=== PATIENT | male | born 1965 | race Caucasian/White ===

== ENCOUNTER → 2020-09-24 09:35 | Outpatient (BNVA) | payer OTHER, SELFPAY | PROVIDERS: Family Provider Emergency Medicine Emergency Medical Services; PCP Emergency Medicine Emergency Medical Services; Visit Provider Urology | DX: R31.29 Other microscopic hematuria (principal) | CPT/HCPCS: 81003 ==

== ENCOUNTER → 2021-09-16 08:10 | Outpatient (BNVA) | payer OTHER, SELFPAY | PROVIDERS: PCP Emergency Medicine Emergency Medical Services; Visit Provider Urology | DX: R31.29 Other microscopic hematuria (principal) | CPT/HCPCS: 88112 ==

== ENCOUNTER → 2021-10-04 08:49 | Outpatient (BNVA) | payer OTHER, SELFPAY | PROVIDERS: PCP Emergency Medicine Emergency Medical Services; Visit Provider Otolaryngology | DX: Z01.812 Encounter for preprocedural laboratory examination (principal); Z20.822 Contact with and (suspected) exposure to COVID-19 | CPT/HCPCS: 87635 ==

== ENCOUNTER 2021-10-09 08:52 | Day surgery (SDC) | payer OTHER, SELFPAY ==
[2021-10-08 16:56] VITALS: BMI 28.9
[2021-10-09] MEDS: sodium chloride 0.9% 1,000 ML 30 ML IV (09:45)
--- NOTE | 2021-10-09 10:23 | P.ANESASSM_ITS ---
Pre-Anesthetic Assessment Pre-Anesthetic Assessment: Height/Weight: Height 1.75 m Weight 88.904 kg Preop Diagnosis: Basal cell carcinoma right external ear Proposed Procedure: Operation Date: 10/09/21 10:35 Proposed Procedures p Excision of Basal carcinoma on right ear 53386 C44.212(Right) - Jairo Mario MD Was Beta Yolanda taken within 24 hours: Yes Was Clonidine taken within 24 hours: N/A Last intake: Intake Last Liquid Date 10/08/21 Last Liquid Time 21:00 Last Solid Date 10/08/21 Last Solid Time 18:00 Social: Social History: Tobacco and No alcohol Exam: Pre-Anes Outpt Exam: alert, oriented x 3 and regular rate & rhythm Airway: Submandibular: WNL Cervical ROM: WNL MP: 2 Dentition: False Pulmonary: Pulmonary: COPD CV/HEM: CV/HEM: CAD (stents) and HTN GI: GI: GERD Metabolic: Metabolic: Hyperlipidemia Anesthetic Plan: ASA status: 3 Anesthesia: Choice Risk of > 500 ml blood loss (7ml/kg in children): No PFSH Anesthesia PFSH: Medical History 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
--- NOTE | 2021-10-09 12:25 | W.PM.OPSUD ---
Surgery/Procedure H&P Update DATE OF PROCEDURE: October 09, 2021 DATE H&P PERFORMED: 09/16/21 H&P UPDATE INFORMATION: I have reviewed H&P completed within last 30 days, I have examined patient prior to procedure and No changes to prior documentation PREOP DIAGNOSIS: Basal cell carcinoma right external ear PLANNED PROCEDURE: Operation Date: 10/09/21 10:35 Proposed Procedures p Excision of Basal carcinoma on right ear 52134 C44.212(Right) - Jairo Mario MD
--- NOTE | 2021-10-09 13:05 | SUR.OPER ---
1238 5.1 ml 2% lidocaine with epi injected into pt right ear by dr bradshaw. [facility] [id number] LOT [id number] EXP 2023-08
[2021-10-09 13:27] VITALS: BP 128/60; PULSE 81; RESP 14; TEMP 36.4; O2SAT 98
--- NOTE | 2021-10-09 13:27 | PM.OP ---
Operative Report Date of procedure: October 09, 2021 Pre-op Diagnosis: Basal cell carcinoma right external ear Post-op diagnosis: same Post-op Findings: Margins clear on resection Procedure Done: Wedge excision of external right ear basal cell carcinoma. Primary complex repair. Complete length 4 cm Pathology: Frozen section on posterior most aspect of the excision. Surgeon: Jairo Mario Anesthesia: General and Local Estimated blood loss (mL): 15 Complications: No complications encountered Findings: Patient has basal cell carcinoma on the midportion helical rim of his right ear extending to the posterior surface. Condition: stable Disposition: PACU Brief History: 56-year-old male patient has a right helical rim midportion basal cell carcinoma. Here to have this excised. Procedure understood and informed consent signed. Risks include bleeding infection scarring cosmetic change of the ear recurrence and need for additional treatment as well as anesthetic risks. Procedure: Description of procedure: The patient was placed on the operating table in the supine position and adequate general LMA was obtained. The patient was then positioned with his right ear visualized. The ear was infiltrated after cleansing with alcohol and a field block anterior and posterior to the lesion using a total of 5.1 mL of 2% Xylocaine with 1 100,000 epinephrine. A timeout was accomplished and I identifying the patient date of procedure allergies and fire risk. With all in agreement the procedure continued. The site was prepped and draped in usual fashion. A marking pen was used to outline a wedge excision pattern extending to the [place] anteriorly and posteriorly to just anterior to the postauricular crease. The incision was then created through the skin subcutaneous tissue and through the cartilage and extending to the back. A large portion was resected and then the posterior most portion was resected as a separate specimen and sent for margins. While that was pending hemostasis was attained by pressure. Pathology returned as clear margins. The wound was then closed with interrupted 4-0 chromic closing the subcutaneous and cartilaginous layer and then a 5-0 nylon was used to close in a yazdanism fashion the anterior skin and then the posterior skin. Pressure was then applied for several minutes. With no active bleeding the area was cleansed. Neosporin ointment was applied over the incision anterior posterior and this was followed by a large Band-Aid. Patient tolerated the procedure well and estimated blood loss of 15 mL and arrived in recovery in stable condition.
[2021-10-09 13:30] VITALS: BP 123/67; PULSE 79; RESP 19; O2SAT 98
[2021-10-09 13:35] VITALS: BP 121/62; PULSE 82; RESP 18; TEMP 36.5; O2SAT 96
[2021-10-09 13:44] VITALS: BP 127/69; PULSE 100; RESP 18; TEMP 36.1; O2SAT 95
[2021-10-09 14:14] VITALS: BP 126/68; PULSE 84; RESP 17; O2SAT 98
--- NOTE | 2021-10-09 15:08 | ANE.PACU2 ---
Inpatient post-anesthesia follow up: Airway intact: Yes Vital signs: Temperature 97 F Pulse Rate 84 Respiratory Rate 17 Blood Pressure 126/68 Pulse Oximetry 98 Oxygen Delivery Me thod Room Air Oxygen Flow Rate 8 Fraction of Inspir ed Oxygen Hydration adequate: Yes Nausea and vomiting: No Pain level: 1 Mental status: Baseline
== END 2021-10-09 14:23 | disposition home or self-care (01) ==
PROVIDERS: PCP Emergency Medicine Emergency Medical Services; Visit Provider Otolaryngology
PROC: (CPT 11643; principal; 2021-10-09 10:25)
DX: C44.212 Basal cell carcinoma of skin of right ear and external auricular canal (principal); J44.9 Chronic obstructive pulmonary disease, unspecified; I25.10 Atherosclerotic heart disease of native coronary artery without angina pectoris; Z95.5 Presence of coronary angioplasty implant and graft; I10 Essential (primary) hypertension; E78.5 Hyperlipidemia, unspecified; K21.9 Gastro-esophageal reflux disease without esophagitis; F17.210 Nicotine dependence, cigarettes, uncomplicated; Z79.82 Long term (current) use of aspirin
CPT/HCPCS: 11643; 13152; 88304; 88331; 96365; J0690; J2704; J3010; J3490; J7030

== ENCOUNTER → 2021-11-07 11:14 | Outpatient (BNVA) | payer OTHER, SELFPAY | PROVIDERS: PCP Emergency Medicine Emergency Medical Services; Visit Provider Urology | DX: R31.29 Other microscopic hematuria (principal) | CPT/HCPCS: 88112 ==

== ENCOUNTER 2021-11-11 13:37 | Outpatient (CLI) | payer OTHER, SELFPAY ==
--- NOTE | 2021-11-11 13:30 | US_ITS ---
WS: [id number] RENAL ULTRASOUND HISTORY: HEMATURIA COMPARISON: 09/19/2019 TECHNIQUE: 2-D and color Doppler imaging of the kidney submitted. Known horseshoe configuration of the kidneys. Right kidney: 10.2 cm x 3.9 cm x 4.3 cm. Normal echogenicity with no hydronephrosis or mass. Left kidney: 11.3 cm x 4.7 cm x 5.1 cm. Normal echogenicity. No solid mass. Due to the horseshoe configuration the renal pelvis is anteriorly rotated. There is a dilated extrarenal pelvis which has been previously described. The ureter is not dilated. No calyceal dilatation appreciated. Aorta: Normal. Urinary Bladder: Minimally distended bladder. US/US renal BI* [id number] IMPRESSION: 1. Horseshoe shaped kidneys. 2. Moderate-sized extrarenal pelvis on the LEFT. Similar to the prior CT from 09/19/2019. 3. No solid mass identified.
== END 2021-11-11 13:38 | disposition home or self-care (01) ==
LOC: RAD 13:39
PROVIDERS: PCP Emergency Medicine Emergency Medical Services; Visit Provider Urology
DX: R31.29 Other microscopic hematuria (principal); Q63.1 Lobulated, fused and horseshoe kidney; Z20.822 Contact with and (suspected) exposure to COVID-19
CPT/HCPCS: 76770; 81003; 84153; 87635

== ENCOUNTER 2021-11-14 06:12 | Day surgery (SDC) | payer OTHER, SELFPAY ==
[2021-11-11 10:37] VITALS: BMI 28.0
[2021-11-14 06:28] VITALS: BP 118/69; PULSE 69; RESP 18; TEMP 36.4; O2SAT 98
[2021-11-14] MEDS: sodium chloride 0.9% 1,000 ML 30 ML IV (06:38)
--- NOTE | 2021-11-14 06:38 | W.PM.OPSFHP ---
Same Day Surgery H&P Indication for Procedure/HPI DATE OF PROCEDURE: November 14, 2021 CHIEF COMPLAINT/INDICATIONFOR SURGICAL PROCEDURE: Colon polyps PREOP DIAGNOSIS: History of colon polyps PLANNED PROCEDRUE: Operation Date: 11/14/21 07:30 Proposed Procedures p Colonoscopy 00519 Z86.010(Not Applicable) - Pablo Martinez MD 08/29/21 This is a pleasant 56 years old gentleman referred to my practice with history of colon polyps about 5 years ago. And he is due for surveillance colonoscopy. Patient denies history of bleeding per rectum or history of colon cancer. Interval history 11/14/2021 Patient comes today for surveillance colonoscopy ROS All systems reviewed all systems have been reviewed negative except as for the above or per problem list Medications/Allergies* Home Medications Medication Instructions Recorded Confirmed Type atorvastatin 80 mg tablet 80 mg PO DAILY 09/24/20 11/14/21 History cholecalciferol (vitamin D3) 50 50 mcg PO DAILY 09/24/20 11/14/21 History mcg (2,000 unit) capsule clopidogrel 75 mg tablet 75 mg PO DAILY 09/24/20 11/14/21 History metoprolol tartrate 25 mg tablet 25 mg PO BID 09/24/20 11/14/21 History omega-3 fatty acids 1,000 mg 2,000 mg PO BID 09/24/20 11/14/21 History capsule omeprazole 20 mg capsule,delayed 20 mg PO DAILY 09/24/20 11/14/21 History release aspirin 81 mg tablet,delayed 81 mg PO DAILY 08/29/21 11/14/21 History release Allergies/Adverse Reactions Allergy/AdvReac Type Severity Reaction Status Date / Time Penicillins Allergy Unknown ADR-Nausea Verified 11/14/21 06:40 varenicline [From Chantix] Allergy Unknown Unknown Verified 11/14/21 06:40 Current Medications: Generic Name Dose Route Start Last Admin Trade Name Freq PRN Reason Stop Dose Admin Sodium Chloride 1,000 mls @ 30 mls/hr 11/14/21 06:30 11/14/21 06:38 Sodium Chloride 0.9% IV 30 mls/hr .Q24H YOLI Administration Pertinent History/Comorbid Conditions* Medical History (Updated 10/21/21 @ 13:34 by Jairo Mario MD) 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 Hyperlipidemia Microscopic hematuria Surgical History (Updated 09/24/20 @ 10:15 by Jane Russell APRN) History of arthroscopy of both knees Hx of arthroscopy of shoulder Hx of coronary angioplasty Hx of vasectomy Social History Alcohol intake: current Alcohol intake frequency: holidays/special occasions only Adopted: No Caregiver/support person: No Lives independently: Yes Marital status: Legally Current occupational status: employed Pertinent Exam Findings alert, oriented x 3 and procedure specific exam findings (Abdominal examination nontender nondistended soft) Recommendations Surgery/Procedure today Other Plans: Plan of care; After thorough history and physical examination and reviewing the chart, plan to perform surveillance colonoscopy. I discussed with the patient in details the risks,benefits,alternatives and indications.The risk of aspiration, bleeding, soft tissue injury, perforation of the colon and other potential concomitant complications were explained to the patient in details,also the potential need for Laproscoy/Laparotomy to repair any related complications including but not limited to colectomy and or Closotomy.The patient understood this well and did agree to proceed. Rationale was carefully and clearly discussed with the patient.Appropriate informed consent have been reviewed and signed All questions have been answered and all concerns have been addressed to patient's satisfaction. Verbal and written Instructions were given to the patient for colonoscopy prep Coding Level of Care Code Acute Surtass Analyst for Jerome Fofana
--- NOTE | 2021-11-14 07:11 | P.ANESASSM_ITS ---
Pre-Anesthetic Assessment Pre-Anesthetic Assessment: Height/Weight: Height 1.75 m Weight 86.183 kg Temp Pulse Resp BP Pulse Ox 97.5 F L 69 18 118/69 98 11/14/21 06:28 11/14/21 06:28 11/14/21 06:28 11/14/21 06:28 11/14/21 06:28 Preop Diagnosis: History of colon polyps Proposed Procedure: Operation Date: 11/14/21 07:30 Proposed Procedures p Colonoscopy 11620 Z86.010(Not Applicable) - Pablo Martinez MD Was Beta Yolanda taken within 24 hours: Yes (Beta yolanda last taken 11/12) Was Clonidine taken within 24 hours: N/A Last intake: Intake Last Liquid Date 11/13/21 Last Liquid Time 20:00 Last Solid Date 11/12/21 Last Solid Time 19:00 Social: Social History: Tobacco Exam: Pre-Anes Outpt Exam: alert, oriented x 3, clear to auscultation bilaterally and regular rate & rhythm Airway: Submandibular: WNL Cervical ROM: WNL MP: 1 Dentition: False History/ROS: No significant complaints Pulmonary: Pulmonary: None reported CV/HEM: CV/HEM: Afib and CAD (Stents) : Comments: Horseshoe kidney Hepatic: Hepatic: None reported GI: GI: GERD Comments: Well controlled Metabolic: Metabolic: None reported Musc/skel: Musc/skel: None reported Neuropsych: Neuropsych: None reported Anesthetic Plan: ASA status: 3 (56 year old male daily smoker with CAD and coronary stents) Anesthesia: Anesthesia Evaluation and MAC Other: We discussed risk and benefits of MAC anesthesia including spectrum of anesthesia with possible deep sedation/general as well as possible recall of intraoperative stimuli/pain. Patient agrees to proceed. 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
[2021-11-14 08:02] VITALS: BP 111/70; PULSE 70; RESP 18; TEMP 36.6; O2SAT 100
[2021-11-14 08:25] VITALS: BP 123/68; PULSE 74; RESP 16; O2SAT 100
--- NOTE | 2021-11-14 08:49 | ANE.PACU2 ---
Inpatient post-anesthesia follow up: Vital signs: Temperature 97.9 F Pulse Rate 74 Respiratory Rate 16 Blood Pressure 123/68 Pulse Oximetry 100 Oxygen Delivery Me thod Room Air Oxygen Flow Rate 2 Fraction of Inspir ed Oxygen Hydration adequate: Yes Nausea and vomiting: No Pain level: 1 Mental status: Baseline
== END 2021-11-14 08:29 | disposition home or self-care (01) ==
PROVIDERS: PCP Emergency Medicine Emergency Medical Services; Visit Provider Surgery
PROC: 0DJD8ZZ Inspection of Lower Intestinal Tract, Via Natural or Artificial Opening Endoscopic (ICD-10-PCS; CPT 45378; principal; 2021-11-14 07:30)
DX: Z12.11 Encounter for screening for malignant neoplasm of colon (principal); Z86.010 Personal history of colon polyps; K57.30 Diverticulosis of large intestine without perforation or abscess without bleeding; D12.3 Benign neoplasm of transverse colon; I48.91 Unspecified atrial fibrillation; Z95.5 Presence of coronary angioplasty implant and graft; F17.210 Nicotine dependence, cigarettes, uncomplicated; I25.110 Atherosclerotic heart disease of native coronary artery with unstable angina pectoris; E78.5 Hyperlipidemia, unspecified; Q63.1 Lobulated, fused and horseshoe kidney
CPT/HCPCS: 45385; 96360; 96361; 96374; 96375; 99285; J2704; J7030

== ENCOUNTER → 2022-01-29 14:24 | Outpatient (BNVA) | payer OTHER, SELFPAY | PROVIDERS: PCP Emergency Medicine Emergency Medical Services; Referring Provider Emergency Medicine Emergency Medical Services; Visit Provider Podiatrist Foot & Ankle Surgery | DX: M79.672 Pain in left foot (principal); S92.322A Displaced fracture of second metatarsal bone, left foot, initial encounter for closed fracture; W20.8XXA Other cause of strike by thrown, projected or falling object, initial encounter | CPT/HCPCS: 73630 ==

== ENCOUNTER → 2022-12-15 15:11 | Outpatient (BNVA) | payer OTHER, SELFPAY | PROVIDERS: PCP Emergency Medicine Emergency Medical Services; Visit Provider Urology | DX: R31.29 Other microscopic hematuria (principal) | CPT/HCPCS: 51798; 52000; 81003; 99213 ==

== ENCOUNTER → 2024-08-24 08:52 | Outpatient (BNVA) | payer OTHER, SELFPAY | PROVIDERS: PCP Emergency Medicine Emergency Medical Services; Referring Provider Family Medicine; Visit Provider Surgery | DX: Z12.11 Encounter for screening for malignant neoplasm of colon (principal) | CPT/HCPCS: 99204; 99214 ==

== ENCOUNTER 2024-10-04 08:06 | Day surgery (SDC) | payer OTHER, SELFPAY ==
[2024-10-04 08:23] VITALS: BMI 28.0
--- NOTE | 2024-10-04 08:27 | ANES.PREANE2 ---
Pre-Anesthetic Assessment Height/Weight: Height 1.75 m Weight 86.183 kg Operation Date: 10/04/24 09:15 Proposed Procedures p Colonoscopy 35029, G0121, z12.11(Not Applicable) - Sawyer Burns MD Familial anesthetic complications: none Was Beta Yolanda taken within 24 hours: Yes Was Clonidine taken within 24 hours: N/A Last intake: Intake Last Liquid Date 10/03/24 Last Liquid Time 21:00 Last Solid Date 10/02/24 Social Tobacco and No alcohol Exam alert, oriented x 3, clear to auscultation bilaterally and regular rate & rhythm Airway Mallampati: Class I Dentition: false CV/HEM Coronary Artery Disease (hx stents, no cardiac symptoms) and Hypertension GI Gastroesophageal Reflux Disease Metabolic Hyperlipidemia Anesthetic Plan ASA status: 3 Anesthesia: MAC Risk of > 500 ml blood loss (7ml/kg in children): No Medications/Allergies Home Medications Medication Instructions Recorded Confirmed Last Taken Type atorvastatin 80 mg tablet 80 mg PO DAILY 09/24/20 09/29/24 10/03/24 History cholecalciferol (vitamin D3) 50 50 mcg PO DAILY 09/24/20 09/29/24 10/03/24 History mcg (2,000 unit) capsule clopidogrel 75 mg tablet 75 mg PO DAILY 09/24/20 09/29/24 09/27/24 History metoprolol tartrate 25 mg tablet 25 mg PO BID 09/24/20 09/29/24 10/04/24 History omega-3 fatty acids 1,000 mg 2,000 mg PO BID 09/24/20 09/29/24 10/03/24 History capsule (Fish Oil Concentrate) omeprazole 20 mg capsule,delayed 20 mg PO DAILY 09/24/20 09/29/24 10/03/24 History release aspirin 81 mg tablet,delayed 81 mg PO DAILY 08/29/21 10/04/24 11/13/21 History release Rigid plastic foot orthoses #1 ea 01/29/22 08/24/24 Unknown Rx three-quarter length with orthopedic shoes such as [place] Defy ferrous sulfate 325 mg (65 mg 325 mg PO DAILY 08/24/24 09/29/24 10/03/24 History iron) tablet (Feosol) terbinafine HCl 1 % topical cream 1 applic topical BID 08/24/24 10/04/24 10/03/24 History (Antifungal (terbinafine)) albuterol sulfate 90 mcg/actuation 1 inh inhalation QID PRN Shortness 09/29/24 10/04/24 10/03/24 History aerosol inhaler Of Breath Or Wheezing coenzyme Q10 100 mg capsule 200 mg PO DAILY 09/29/24 09/29/24 10/03/24 History (CoQ-10) ezetimibe 10 mg tablet 10 mg PO DAILY 09/29/24 09/29/24 09/29/24 History folic acid 0.4 mg PO DAILY 09/29/24 09/29/24 10/03/24 History Allergies Allergy/AdvReac Type Severity Reaction Status Date / Time Penicillins Allergy Unknown ADR-Nausea Verified 10/04/24 08:20 varenicline [From Chantix] Allergy Unknown Unknown Verified 10/04/24 08:20 [facility] Anesthesia Medical History Diverticulosis Hyperlipidemia Atherosclerotic heart disease of [place] coronary artery without angina pectoris Microscopic hematuria Horseshoe kidney Surgical History (Updated 08/24/24 @ 09:[address]) Hx of coronary angioplasty Hx of vasectomy History of arthroscopy of both knees Hx of arthroscopy of shoulder Social History Smoking and tobacco/nicotine status: never used tobacco/nicotine Alcohol intake: current Alcohol intake frequency: holidays/special occasions only Substance/Drug Use: unknown Adopted: No Caregiver/support person: No Lives independently: Yes Marital status: Legally Current occupational status: employed Data Anesthesia Cardiac Studies: No Data to Display
--- NOTE | 2024-10-04 08:28 | P.HPUD_ITS ---
Surgery/Procedure H&P Update DATE OF PROCEDURE: October 04, 2024 DATE H&P PERFORMED: 08/24/24 H&P UPDATE INFORMATION: I have reviewed H&P completed within last 30 days, I have examined patient prior to procedure, No changes to prior documentation and H&P is in [facility] [place] on date indicated PLANNED PROCEDURE: Operation Date: 10/04/24 09:15 Proposed Procedures p Colonoscopy 38737, G0121, z12.11(Not Applicable) - Sawyer Burns MD
[2024-10-04] MEDS: sodium chloride 0.9% 1,000 ML 30 ML IV (08:30)
[2024-10-04 08:33] VITALS: BP 115/65; PULSE 49; RESP 18; TEMP 36.3; O2SAT 98
[2024-10-04 09:17] VITALS: BP 101/51; PULSE 68; RESP 14; TEMP 36.1; O2SAT 98
[2024-10-04 09:31] VITALS: BP 102/65; PULSE 74; RESP 18; O2SAT 96
--- NOTE | 2024-10-04 10:10 | ANE.PACU2 ---
Inpatient post-anesthesia follow up: Airway intact: Yes Vital signs: Temperature 97 F Pulse Rate 74 Respiratory Rate 18 Blood Pressure 102/65 Pulse Oximetry 96 Oxygen Delivery Me thod Room Air Oxygen Flow Rate Fraction of Inspir ed Oxygen Hydration adequate: Yes Nausea and vomiting: No Pain level: 1 Mental status: Baseline
== END 2024-10-04 10:10 | disposition home or self-care (01) ==
PROVIDERS: Visit Provider Surgery
PROC: 0DJD8ZZ Inspection of Lower Intestinal Tract, Via Natural or Artificial Opening Endoscopic (ICD-10-PCS; CPT 45378; principal; 2024-10-04 09:15)
DX: Z12.11 Encounter for screening for malignant neoplasm of colon (principal); K64.8 Other hemorrhoids; K57.30 Diverticulosis of large intestine without perforation or abscess without bleeding; D12.5 Benign neoplasm of sigmoid colon; D12.3 Benign neoplasm of transverse colon; D12.8 Benign neoplasm of rectum; I25.10 Atherosclerotic heart disease of native coronary artery without angina pectoris; Z95.5 Presence of coronary angioplasty implant and graft; I10 Essential (primary) hypertension; K21.9 Gastro-esophageal reflux disease without esophagitis; E78.5 Hyperlipidemia, unspecified; Z79.82 Long term (current) use of aspirin
CPT/HCPCS: 45380; 88305; J2704; J3490; J7030

== ENCOUNTER → 2024-10-25 07:51 | Outpatient (BNVA) | payer OTHER, SELFPAY | PROVIDERS: Visit Provider Surgery | DX: Z09 Encounter for follow-up examination after completed treatment for conditions other than malignant neoplasm (principal); R03.0 Elevated blood-pressure reading, without diagnosis of hypertension | CPT/HCPCS: 99213 ==

== ENCOUNTER 2024-11-08 11:35 | Outpatient (CLI) | payer OTHER, SELFPAY ==
[2024-11-08 11:43] VITALS: BMI 28.8
--- NOTE | 2024-11-08 11:57 | ECG_ITS ---
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
[2024-11-08 13:03] VITALS: BP 125/73; PULSE 88
== END 2024-11-08 11:36 | disposition home or self-care (01) ==
PROVIDERS: PCP Family Medicine; Visit Provider Family Medicine
DX: Z98.61 Coronary angioplasty status (principal); R06.02 Shortness of breath
CPT/HCPCS: 93017

== ENCOUNTER → 2025-09-19 09:36 | Outpatient (BNVA) | payer OTHER, SELFPAY | PROVIDERS: PCP Family Medicine; Visit Provider Orthopaedic Surgery | DX: M25.562 Pain in left knee (principal) | CPT/HCPCS: 73560; 73565; 99204 ==

== ENCOUNTER 2025-10-25 09:37 | Observation (INO) | payer OTHER, SELFPAY ==
--- NOTE | 2025-10-24 22:42 | ANES.PREANE2 ---
Pre-Anesthetic Assessment Height/Weight: Height 5 ft 9 in Preop Diagnosis: Knee arthritis Operation Date: 10/25/25 07:00 Proposed Procedures p LEFT Total Knee Arthroplasty(Left) - Richard Garsia MD Was Beta Yolanda taken within 24 hours: Yes Was Clonidine taken within 24 hours: N/A Social Tobacco and No alcohol 1 pack(s) per day Exam alert, oriented x 3 and regular rate & rhythm Diminished breath sounds throughout Airway Submandibular: within normal limits Cervical ROM: within normal limits Mallampati: Class I Comments: Comments: Edentulous Anesthetic Plan ASA status: 3 Anesthesia: MAC and Regional (specify below) Other: No prior issues with anesthesia NPO since yesterday evening History of hypertension on metoprolol GERD, controlled with omeprazole CAD history, s/p stents. On chronic Plavix. Last taken 10/18/2025 Stress test performed 11/08/2024 which was unremarkable Patient brought labs in from NH performed within the last month, hemoglobin 13.6. Electrolytes stable Plan for spinal anesthesia with peripheral nerve block in PACU Medications/Allergies Home Medications ?Medication ?Instructions ?Recorded ?Confirmed ?Last Taken ?Type atorvastatin 80 mg tablet 80 mg PO DAILY 09/24/20 10/24/25 10/24/25 History cholecalciferol (vitamin D3) 50 50 mcg PO DAILY 09/24/20 10/24/25 10/18/25 History mcg (2,000 unit) capsule clopidogrel 75 mg tablet 75 mg PO DAILY 09/24/20 10/24/25 10/18/25 History metoprolol tartrate 25 mg tablet 25 mg PO BID 09/24/20 10/25/25 10/25/25 History omega-3 fatty acids 1,000 mg 2,000 mg PO BID 09/24/20 10/25/25 10/25/25 History capsule (Fish Oil Concentrate) omeprazole 20 mg capsule,delayed 20 mg PO DAILY 09/24/20 10/25/25 10/25/25 History release aspirin 81 mg tablet,delayed 81 mg PO DAILY 08/29/21 10/24/25 10/18/25 History release Rigid plastic foot orthoses #1 ea 01/29/22 09/19/25 Unknown Rx three-quarter length with orthopedic shoes such as [place] Defy ferrous sulfate 325 mg (65 mg 325 mg PO DAILY 08/24/24 10/24/25 10/18/25 History iron) tablet (Feosol) terbinafine HCl 1 % topical cream 1 applic topical BID 08/24/24 10/24/25 10/03/24 History (Antifungal (terbinafine)) albuterol sulfate 90 mcg/actuation 1 inh inhalation QID PRN Shortness 09/29/24 10/24/25 10/03/24 History aerosol inhaler Of Breath Or Wheezing coenzyme Q10 100 mg capsule 200 mg PO DAILY 09/29/24 10/25/25 10/25/25 History (CoQ-10) ezetimibe 10 mg tablet 10 mg PO DAILY 09/29/24 10/24/25 10/24/25 History folic acid 0.4 mg PO DAILY 09/29/24 10/24/25 10/24/25 History Allergies Allergy/AdvReac Type Severity Reaction Status Date / Time Penicillins Allergy Unknown ADR-Nausea Verified 10/25/25 06:06 varenicline (From Chantix) Allergy Unknown Unknown Verified 10/25/25 06:06 [facility] Anesthesia Medical History (Updated 09/19/25 @ 10:49 by Richard Garsia MD) Diverticulosis Hyperlipidemia Atherosclerotic heart disease of [place] coronary artery without angina pectoris Microscopic hematuria Horseshoe kidney Surgical History Hx of coronary angioplasty Hx of vasectomy History of arthroscopy of both knees Hx of arthroscopy of shoulder Social History Smoking and tobacco/nicotine status: current every day tobacco/nicotine user Alcohol intake: current Alcohol intake frequency: holidays/special occasions only Substance/Drug Use: unknown Adopted: No Caregiver/support person: No Lives independently: Yes Marital status: Legally Current occupational status: employed
[2025-10-25] VITALS (23 sets, daily range): BP systolic 88–143; BP diastolic 37–80; PULSE 54–82; RESP 15–18; TEMP 35.9–38.7; O2SAT 92–98; BMI 27.3
--- NOTE | 2025-10-25 06:34 | P.HPUD_ITS ---
Surgery/Procedure H&P Update DATE OF PROCEDURE: October 25, 2025 DATE H&P PERFORMED: 10/25/25 H&P UPDATE INFORMATION: I have reviewed H&P completed within last 30 days, I have examined patient prior to procedure and No changes to prior documentation CHANGES TO PREVIOUS DOCUMENTATION: Patient's original H&P was done on 09/18/2025. Since that time there is been no medical changes in his history. No new surgical procedures and no new me dications. Physical exam today patient awake and alert oriented x 3 Chest: Chest was clear to auscultation Heart: Heart was regular rate and rhythm no murmurs rubs or clicks GI: Abdomen soft flat nontender nondistended positive bowel sounds no organomegaly masses noted Musculoskeletal: Extremity exam demonstrated tenderness and pain about the left knee with slight flexion contracture. Crepitation with active flexion extension. Positive Yamel's test. Remainder of the exam from 09/18/2025 is still good. Impression: End-stage degenerative joint disease left knee Plan: At this time left total knee arthroplasty is planned. PREOP DIAGNOSIS: Knee arthritis PLANNED PROCEDURE: Operation Date: 10/25/25 07:00 Proposed Procedures p LEFT Total Knee Arthroplasty(Left) - Richard Garsia MD
[2025-10-25] MEDS: tranexamic acid 1,000 mg/10mL SDV 1000 MG IV (07:02)
--- NOTE | 2025-10-25 08:45 | XR_ITS ---
WS: [id number] Left knee, 2 views, 10/25/2025 Clinical Data: Total knee arthroplasty Comparison: Bilateral knees, left knee, 09/19/2025 Findings: There is a total knee arthroplasty. The components are in good position. There are anterior surgical ashley. XR/XR knee LT 1-2V [id number] Impression: Left knee arthroplasty.
--- NOTE | 2025-10-25 09:33 | P.OP_ITS ---
Operative Report Date of procedure: October 25, 2025 Surgeon: Richard Garsia MD Procedure: Preoperative diagnosis: End-stage degenerative joint disease left knee Postoperative diagnosis: Same Procedure: Left total knee arthroplasty Surgeon: Richard Garsia MD Customer Service Analyst: [email or web address] Berg'kristal assistance was necessary for positioning the patient, assistance during the procedure, wound closure and dressing placement Anesthesia: Spinal EBL: 10 cc Tourniquet time: 46 minutes at 250 mmHg Indications: Evaristo is a 60-year-old white male who presented the orthopedic clinics with debilitating pain in his left knee. Subsequently had X-rays demonstrated [id number] presentation with varus deformity of the knee. Patient had end-stage degenerative joint disease of the left knee. Having failed all conservative measures patient then offered left total knee arthroplasty. All risk benefits treatment alternatives were discussed with him and he is agreeable to this at this time. Procedure: After obtaining her consent patient was taken the operative room placed on the operative table supine position spinal anesthetic was administered. Once good anesthesia was achieved patient was again positioned in supine position and pneumatic cuffs placed on proximal left leg. Left leg was prepped and draped usual fashion. After surgical timeout and gravity exsanguination pneumatic cuff is inflated 250 mmHg. Leg was then of foot holding device and was held at 90 degrees flexion. Longitudinal incision made from tibial tubercle to superior pole of the patella. Sharp dissected gone down subcutaneous tissues electrocautery used hemostasis. Knee was opened up along medial parapatellar incision line exposing the knee. Soft tissue was sharply debrided including fat pad anterior horn of the meniscus. ACL was also removed. Skin and capsule were stripped from the medial aspect of the proximal tibia for better exposure. Leg was put out the full extension patella was then everted. Fat pad was excised from the knee. Rongeur's were used to remove osteophytes around the periphery of the patella. Patella was then reamed down to a 14 mm Thickness with a patellar reaming device. Patella was then placed back into the lateral gutter and Appropriate retractors were placed to expose the knee. Subsequently tibial cutting guide was position with appropriate posterior slope and a 2 mm cut off the most affected side that being medial. This is then pinned in place once axially aligned externally. Small osteotome driven anterior to the PCL protected during code of the tibial plateau. Tibial plateau was cut with a sagittal saw without any difficulties. Subsequently a box that was made around the PCL insertion with small osteotome and the tibial plateau cut was removed piecemeal. At this point PCL retractor was removed drill hole was placed in the distal femur just anterior to the intercondylar notch. Guide kayli is placed up to interventionally canal of the femur and distal cutting block was positioned on the femur. This is then pinned in place. Sagittal saw was used to make distal cuts of the femur. Distal femur was then sized a size 9 femoral cutting block. Appropriate drill holes placed the sizer. Cutting block was then positioned on the distal femur through the drill holes. Anterior posterior and chamfer cuts were made at that knee difficulties. PCL retractor was then placed back into the knee and tibial plateau was exposed. Soft tissue was sharply debrided from the joint line to clear it. Tibial plateau was then sized to a size E tibial tray.This is then aligned with an external guide kayli and pinned in place. A size 10 tibial spacer was placed on this. Trial femoral component was placed on the distal femur impacted the knee was put through range of motion found to be stable in all positions with full range of motion with flexion and extension. At this pointLegs put out the full extension and patella was sized a size 35 patellar button. Drill guide for this was placed on the posterior aspect of the patella and drilled. Trial patellar button was placed in the was put through range of motion found to have full range of motion good tracking the patella. Subsequently drill holes were placed with a trial femoral component for future post of the permanent component. Femoral component and patellar component was removed. Spacer was also removed off the tibial tray. Tibial tray is left in place. Drill guide was used for future post of the permanent component. Also drill holes were placed to the other small stabilizing posts of the tibial tray. Subsequently the interventionally punch was used to prepare for the stem. Once all this was completed everything was removed from the knee and knee was washed with copious amounts of pulse Avage irrigation with antibiotics within it. Once these are cleaned and dried permanent size EE tibial tray was placed and impacted femoral component was placed and impacted. Trial 10 mm patient was placed within the knee and used with range of motion found to be stable and have full range of motion. Trial spacer was removed and a permanent size 10 tibial spacer was placed and locked in place. Patellar button was then impacted into the posterior patella. Pneumatic cuff was deflated at this point after 46 minutes total tourniquet time. Knee was washed with copious amounts of pulse Avage irrigation again. Electrocautery used for hemostasis. Knee was then put up on a knee bump and extensor mechanism was repaired with #1 Vicryl [id number] sutures.Subcutaneous tissue reapproximated 0 Vicryl interrupted sutures skin was closed skin ashley. Wounds are cleaned and dried with Xeroform gauze sterile gauze dressing and Silverlon dressing.Was then awakened transferred cover him in stable condition
--- NOTE | 2025-10-25 09:39 | ANES.PROC ---
Anesthesia Procedures Procedure/Date: 10/25/25 Left adductor canal block and left iPAQ block for postoperative pain control Nerve Block ^: Nerve Block 1: Main Anesthesia: spinal anesthesia block Time Out Performed: Yes Consent: requested by attending/covering physician and from patient Laterality: Left Nerve block location: other (IPACK) Anesthesia monitors applied: pulse oximetry, EKG, BP cuff and oxygen Nerve block position: supine Anesthetic Used: other (ropivacaine 0.2%) Amount of anesthesia used (mL): 20 Ultrasound used to: recognize landmarks Nerve Stimulator Used?: No Interscalene/Femoral BLK: other needle (pjunk 4inch) Injection: neg aspiration of heme Patient Tolerated Procedure: well Complications: none Nerve Block 2: Main Anesthesia: spinal anesthesia block Time Out Performed: Yes Consent: requested by attending/covering physician and from patient Laterality: Left Nerve block location: adductor canal Anesthesia monitors applied: pulse oximetry, EKG, BP cuff and oxygen Nerve block position: supine Anesthetic Used: ropivicaine 0.5% Amount of anesthesia used (mL): 20 Ultrasound used to: recognize landmarks Nerve Stimulator Used?: Yes Interscalene/Femoral BLK: other needle (pjunk 4inch) Injection: neg aspiration of heme Patient Tolerated Procedure: well Complications: none
--- NOTE | 2025-10-25 09:45 | ANE.PACU2 ---
Inpatient post-anesthesia follow up: Airway intact: Yes Vital signs: Temperature 96.7 F Pulse Rate 60 Respiratory Rate 16 Blood Pressure 115/62 Pulse Oximetry 98 Oxygen Delivery Me thod Room Air Oxygen Flow Rate 8 Fraction of Inspir ed Oxygen Hydration adequate: Yes Nausea and vomiting: No Pain level: 1 Mental status: Baseline
[2025-10-25] MEDS: chlorhexidine gluconate 0.12% Btl 473 mL 30 ML MUCOUS MEM ×2 (11:04→18:06)
[2025-10-25] MEDS: HYDROcodone-acetaminophen 5-325 mg Tablet 1 TAB PO ×2 (16:27→20:29)
[2025-10-25] MEDS: sennosides-docusate Tablet 2 TAB PO (18:05)
[2025-10-25] MEDS: mupirocin oint 22 gm 1 APPLIC NASAL (18:07)
[2025-10-25] MEDS: morphine 4 mg/mL SDV 1 mL IVP (23:12)
[2025-10-26] MEDS: HYDROcodone-acetaminophen 5-325 mg Tablet 1 TAB PO ×4 (00:43→12:52)
[2025-10-26] MEDS: multivitamin therapeutic Tablet 1 TAB PO (04:33)
[2025-10-26] MEDS: sennosides-docusate Tablet 2 TAB PO (04:33)
[2025-10-26] MEDS: mupirocin oint 22 gm 1 APPLIC NASAL (04:36)
[2025-10-26] MEDS: chlorhexidine gluconate 0.12% Btl 473 mL 30 ML MUCOUS MEM ×2 (04:36→11:30)
[2025-10-26 06:34] LABS: Hematocrit 35.3 % (37-53); Hemoglobin 11.50 g/dL (11.27-16.99); Mean Corpuscular HGB Conc 32.6 g/dL (30-55); Mean Corpuscular Hemoglobin 29.0 pg (27-33); Mean Corpuscular Volume 88.9 fl (82-101); Nucleated Red Blood Cells % 0 %; Platelet Count 156 10^3/cmm (157-399); Red Blood Count 3.97 10^6/uL (3.85-5.65); White Blood Count 12.20 10^3/uL (3.29-11.43)
[2025-10-26 07:04] LABS: Anion Gap 15.1 (5-19); Blood Urea Nitrogen 12 mg/dL (6-20); Calcium 8.6 mg/dL (8.5-10.5); Carbon Dioxide 22 mmol/L (22-29); Chloride 104 mmol/L (98-107); Glucose 147 mg/dL (65-115); Osmolality Calculated 286 mOsm/kg (285-295); Potassium 4.1 mmol/L (3.5-5.1); Sodium 137 mmol/L (136-145)
[2025-10-26 07:36] VITALS: BP 116/58; PULSE 70; RESP 16; TEMP 37; O2SAT 93
[2025-10-26 08:19] VITALS: PULSE 73; RESP 16; O2SAT 94
--- NOTE | 2025-10-26 09:44 | PC.CHAP ---
Pastoral Care Encounter/Spiritual Assessment Type of Contact [] Declined universal grinder set up operator visit [] Patient/Family/Request visit [] Outpatient visit [] Follow-up visit [] Physician referral [] Code/Alert [x] Routine visit [] Staff referral [] Actively dying [] Patient sleeping [x] Family support [] [] Out of room [] Palliative care [] [] Receiving care in room [] Pre-surgical visit [] Trauma [] Long length of stay [] ICU visit [] Other: Relational/Emotional Strength [x] Patient feels connected with others/family/visitors/staff [] Distress [] Loneliness/isolation [] Abandonment Spirituality of Patient [x] Person of Amna [] Attends Sabianism of their Amna [x] Believes in Prayer [] Reads Bible or Scientology materials [] There are Spiritual issues to be addressed Forest Firefighter Interventions [x] Prayer [x] Active listening [] Non-anxious presence [x] Spiritual/emotional support [] Crisis/trauma care [] Spiritual counseling [] Bereavement support [] Provided bereavement packet [] Provided Bible/devotional materials [] Provided toy/stuffed animal, coloring book to patient or family member [] Provided Communion [] Anointing/[place] [] Salvation [x] Completed spiritual assessment [] Other: Impact on Illness or Injury [] Angry [] Fearful [] Anxious [] Often cries [] Exhaustion [] Unable to work [] Unable to attend adventist [] Unable to walk/stand [] Unable to read [] Unable to drive [] Unable to eat/drink [] Unable to sleep [] Unable to be with family [] Patient intubated [] Other: Summary Time spent with patient 5 min
[2025-10-26 11:23] VITALS: BP 113/67; PULSE 69; RESP 17; TEMP 37.2; O2SAT 93
--- NOTE | 2025-10-26 12:14 | PC.NURSE ---
Dr. Garsia in to see patient. Gave verbal orders to discontinue fluids and scheduled tylenol
--- NOTE | 2025-10-26 12:35 | PM.DCS ---
Discharge Providers Date of Admission: 10/25/25 09:37 Date of Discharge: October 26, 2025 Attending Provider at Admission: Richard Garsia MD Attending Provider at Discharge: Richard Garsia MD Primary Care Provider: Jerica Schuler MD Reason for Visit Reason for Visit: M25.562 Brief History: Patient admitted for left total knee arthroplasty Hospital Course Hospital Course Patient underwent the above-stated procedure on 10/25/2025. Tolerated the surgery quite well. Spent 1 night in the hospital for pain control and observation. Blood counts remained stable postoperatively. He has been up with physical therapy and ambulated with a walker without much difficulty. Only complaints are pain at the incision site as to be expected. No other gross abnormalities. Physical Exam Narrative: On exam today patient was laying in bed resting. Dressings are clear. He is neurovasc intact distally in the left lower extremity. Urinary Catheter Management: Hernandez: Cath Placed During This Visit: yes, but has since been removed by the nurse Reason for Continuing Indwelling Catheter: Perioperative Use in Selected Surgeries Urinary Catheter Date of Insertion: 10/25/25 Urinary Catheter Time of Insertion: 07:20 Date Urinary Catheter Removed: 10/26/25 Time Urinary Catheter Discontinued: 05:30 Discharge Data Studies Completed and Pending Completed Studies During Hospitalization Category Date Time Status XR knee LT 1-2V 19069 Routine Exams 10/25/25 08:45 Completed Pending at discharge Category Date Time Status Complete Blood Count w/Auto AM LABS Lab 10/27/25 04:00 Uncollected Complete Blood Count w/Auto AM LABS Lab 10/28/25 04:00 Uncollected Radiology Impressions Knee X-Ray 10/25/25 08:45 Impression: Left knee arthroplasty. Laboratory Results WBC 12.20 10^3/uL (3.29-11.43) H 10/26/25 06:19 RBC 3.97 10^6/uL (3.85-5.65) 10/26/25 06:19 Hgb 11.50 g/dL (11.27-16.99) 10/26/25 06:19 Hct 35.3 % (37-53) L 10/26/25 06:19 MCV 88.9 fl (82-101) 10/26/25 06:19 MCH 29.0 pg (27-33) 10/26/25 06:19 MCHC 32.6 g/dL (30-55) 10/26/25 06:19 RDW 12.5 % (12.1-15.1) 10/26/25 06:19 Plt Count 156 10^3/cmm (157-399) L 10/26/25 06:19 MPV 8.6 fL (7.4-10.4) 10/26/25 06:19 Neut % (Auto) 76.4 % 10/26/25 06:19 Lymph % (Auto) 10.7 % 10/26/25 06:19 [place] % (Auto) 12.0 % 10/26/25 06:19 Eos % (Auto) 0.2 % 10/26/25 06:19 Baso % (Auto) 0.2 % 10/26/25 06:19 Neut # (Auto) 9.31 10^3/uL (1.8-7.7) H 10/26/25 06:19 Lymph # (Auto) 1.3 10^3/uL (0.8-4.8) 10/26/25 06:19 [place] # (Auto) 1.5 10^3/uL (0.2-0.9) H 10/26/25 06:19 Eos # (Auto) 0.0 10^3/uL (0.0-0.8) 10/26/25 06:19 Baso # (Auto) 0.0 10^3/uL (0.0-0.1) 10/26/25 06:19 Nucleated RBC % (auto) 0 % 10/26/25 06:19 Nucleated RBCs # 0.0 /100WBC 10/26/25 06:19 Sodium 137 mmol/L (136-145) 10/26/25 06:19 Potassium 4.1 mmol/L (3.5-5.1) 10/26/25 06:19 Chloride 104 mmol/L (98-107) 10/26/25 06:19 Carbon Dioxide 22 mmol/L (22-29) 10/26/25 06:19 Anion Gap 15.1 (5-19) 10/26/25 06:19 BUN 12 mg/dL (6-20) 10/26/25 06:19 Creatinine 1.0 mg/dL (0.7-1.2) 10/26/25 06:19 GFR Calculation 76.5 mL/min (90-130) L 10/26/25 06:19 Glucose 147 mg/dL (65-115) H 10/26/25 06:19 Calculated Osmolality 286 mOsm/kg (285-295) 10/26/25 06:19 Calcium 8.6 mg/dL (8.5-10.5) 10/26/25 06:19 Procedures Performed Left total knee arthroplasty Vitals Last Vital Signs Temp 99.0 F 10/26/25 11:23 Pulse 69 10/26/25 11:23 Resp 17 10/26/25 11:23 BP 113/67 10/26/25 11:23 Pulse Ox 93 10/26/25 11:23 O2 Del Method Room Air 10/26/25 11:23 O2 Flow Rate 8 10/25/25 09:00 Discharge Plan Discharge Patient Disposition: Home Health Service Condition: Stable Prescriptions: New hydrocodone-acetaminophen 5-325 mg tablet 1 tab PO Q6H PRN (Reason: pain) Qty: 30 0RF aspirin 325 mg tablet 325 mg PO DAILY 60 Days Qty: 60 0RF Continued omega-3 fatty acids [Fish Oil Concentrate] 1,000 mg capsule 2,000 mg PO BID metoprolol tartrate 25 mg tablet 25 mg PO BID omeprazole 20 mg capsule,delayed release(DR/EC) 20 mg PO DAILY cholecalciferol (vitamin D3) 50 mcg (2,000 unit) capsule 50 mcg PO DAILY clopidogrel 75 mg tablet 75 mg PO DAILY atorvastatin 80 mg tablet 80 mg PO DAILY aspirin 81 mg tablet,delayed release (DR/EC) 81 mg PO DAILY (DME) Rigid plastic foot orthoses three-quarter length with orthopedic shoes such as [place] [employer] See Rx Instructions .Route .MEDSUPPLY Qty: 1 0RF Rx Instructions: As directed by [facility]AE[facility]O terbinafine HCl [Antifungal (terbinafine)] 1 % cream 1 applic topical BID ferrous sulfate [Feosol] 325 mg (65 mg iron) tablet 325 mg PO DAILY ezetimibe 10 mg Tablet 10 mg PO DAILY coenzyme Q10 [CoQ-10] 100 mg Capsule 200 mg PO DAILY folic acid 0.4 mg PO DAILY albuterol sulfate 90 mcg/actuation Hfa Aerosol Inhaler 1 inh INHALATION QID PRN (Reason: Shortness Of Breath Or Wheezing) Discharge Order = DC NOW: Discharge Order (Routine); Ordered 10/26/25 Ordered By: Richard Garsia Other Ambulatory Orders: DME: [facility] (Order) Location: None Selected Ordered By: Richard Garsia Referrals: [facility] [Outside] Richard Garsia MD [Physician, Orthopedics] - 3 weeks Discharge Diet: Advance as tolerated Discharge Activity: Increase activity as tolerated Patient Instructions: Acute Wound Care (DC), Opioid Safety, Post Anesthesia Care, Patient Portal & Filomena Instructions Activity Restrictions/Additional Instructions: Do daily exercises instructed Ice and elevate as needed Ambulate daily Adult aspirin 1/day for the next 2 months Call with any concerns Discharge Attestations Time Spent in Discharge Care*: less than 30 min Quality Metrics Clinical Quality Measures [ No reported AMI, CVA or VTE this stay] Coding Level of Care Code Acute Code for Chg Brigido
--- NOTE | 2025-10-26 14:27 | PC.NURSE ---
Discussed discharge with patient and spouse. Went over restrictions, signs and symptoms of infection, new medications, continued medications and follow up appointments. Meds were brought to bedside. Patient worked with PT and walked to door way to get in wheel chair to be wheeled out. Patient and spouse verbalized understanding.
[2025-10-26 14:31] VITALS: BP 113/67; PULSE 69; RESP 17; TEMP 37.2; O2SAT 93
== END 2025-10-26 13:38 | disposition home health service (06) ==
LOC: MEDSURG 09:38
PROVIDERS: Admitting Provider Orthopaedic Surgery; PCP Family Medicine; Visit Provider Orthopaedic Surgery
PROC: (CPT 27447; principal; 2025-10-25 07:00)
DX: M17.12 Unilateral primary osteoarthritis, left knee (principal); I10 Essential (primary) hypertension; K21.9 Gastro-esophageal reflux disease without esophagitis; Z95.5 Presence of coronary angioplasty implant and graft; Z79.82 Long term (current) use of aspirin; Z79.02 Long term (current) use of antithrombotics/antiplatelets; E78.5 Hyperlipidemia, unspecified; F17.200 Nicotine dependence, unspecified, uncomplicated
CPT/HCPCS: 64447; 27447; 36415; 51702; 73560; 80048; 85025; 97110; 97116; 97161; 97165; A4216; C1776; G0378; J1885; J2250; J2270; J2704; J3490; J7030; J9999